=== PATIENT | female | born 1955 | race Caucasian/White ===

== ENCOUNTER 2020-04-22 00:52 | Outpatient (CLI) | payer OTHER, SELFPAY ==
[2020-04-22 18:12] LABS: SARS-CoV-2 RNA PCR Negative
== END 2020-04-22 00:53 | disposition home or self-care (01) ==
LOC: ANHCOVIDDT 00:53
PROVIDERS: PCP Internal Medicine; Visit Provider Internal Medicine Gastroenterology
DX: Z01.812 Encounter for preprocedural laboratory examination (principal); Z20.828 Contact with and (suspected) exposure to other viral communicable diseases
CPT/HCPCS: 87635; C9803; U0003

== ENCOUNTER 2020-04-24 03:01 | Day surgery (SDC) | payer OTHER, SELFPAY ==
[2020-04-18 10:02] VITALS: BMI 35.6
--- NOTE | 2020-04-23 11:51 | WPDANESEPPF ---
Anes - Initial Pre Proc Eval Procedure: Operation Date: 04/24/20 08:00 Proposed Procedures p Screening Colonoscopy - Carl Porter MD Date/Time: 04/23/20 11:51 Surgeon: Carl Porter MD Pre Op Diagnosis: neoplasm screening Patient Data Age: 64 Gender: F Height: 1.68 m Weight: 100 kg Allergies Allergy/AdvReac Type Severity Reaction Status Date / Time nitrofurantoin Allergy Unknown GASTRIC Verified 04/24/20 06:53 DISTRESS Home Medications Medication Instructions Recorded Confirmed Type hydrochlorothiazide 12.5 mg tablet 12.5 mg PO DAILY #90 tablet 12/05/19 04/24/20 Rx semaglutide 3 mg tablet 3 mg PO DAILY 30 Days #30 tablet 04/02/20 04/24/20 Rx amlodipine 5 mg PO HS 04/18/20 04/24/20 History atorvastatin 80 mg PO HS 04/18/20 04/24/20 History fenofibrate 160 mg PO DAILY 04/18/20 04/24/20 History losartan 50 mg PO DAILY 04/18/20 04/24/20 History metformin 1,000 mg PO BID 04/18/20 04/24/20 History omega 5-las-qwg-fish oil [Fish Oil] 1 cap PO DAILY 04/18/20 04/24/20 History Patient hx anesthesia problems: none Family hx anesthesia problems: none [facility] Past Medical History Medical History (Updated 04/23/20 @ 11:51 by Perfecto Gould DO) Benign essential hypertension DM w/o complication type II Dyslipidemia associated with type 2 diabetes mellitus Family History Family History (Updated 02/14/16 @ 23:19 by DOCTOR UNKNOWN) Father Family history of gout Hypertension Family history of diabetes mellitus in first degree relative Mother Family history of diabetes mellitus in first degree relative Family history of malignant neoplasm of cervix Family history of malignant neoplasm of urinary bladder Social History Social History Smoking status: Never smoker Smoking end date: 07/19/77 Alcohol intake: never Substance use: never Substance use type: does not use Spiritual care concerns: No Anes - Eval Final PreProcedure Day of Procedure 04/23/20 11:51 Patient weight: obese Heart: regular rate and rhythm Lungs: clear to auscultation and normal air movement Airway: Mallampati scale class II Neurological: alert and oriented Last oral intake: >/= 8 hours ASA classification: III Emergent: no Anesthetic plan: proceed Anesthesia type and monitoring: general GIVS and standard monitoring Informed Consent: The patient's anesthetic plan and its attendant risks and benefits were discussed with the patient/family/POA. Questions were solicited and answers provided to the satisfaction of the patient/family/POA.
[2020-04-24 06:55] VITALS: BP 144/74; PULSE 76; RESP 16; TEMP 36.4; O2SAT 99; BMI 33.8
[2020-04-24] MEDS: LACTATED RINGERS 1,000 ML 150 ML IV CONT (07:10)
[2020-04-24 07:15] LABS: Glucose Point of Care 131 (65-105)
--- NOTE | 2020-04-24 08:02 | P.CONGI_ITS ---
Assessment and Plan Assessment and plan (1) Encounter for screening colonoscopy: Code(s): Z12.11 - Encounter for screening for malignant neoplasm of colon Status: Acute Assessment and Plan: Patient appears to be at average risk for colon polyps. Plan is for screening colonoscopy has been 13 years since last exam. Further recommendations may be given after endoscopy. GI Consult Note Consult date/time: 04/24/20 08:02 HPI: Annie Yusuf is a 64 year old female seen in evaluation at the request of Dr Everett. Patient presents for neoplasia screening. Her weight appetite bowel movements are normal. She denies abdominal pain. She has had no blood in her stools. Her bowel habits are normal. Her last colonoscopy was about 13 years ago. She presents today for screening colonoscopy. There is no family history of colon or rectal disease. [facility] Past Medical History Medical History (Updated 04/23/20 @ 11:51 by Perfecto Gould, ) Benign essential hypertension DM w/o complication type II Dyslipidemia associated with type 2 diabetes mellitus Family History Family History (Updated 02/14/16 @ 23:19 by DOCTOR UNKNOWN) Father Family history of gout Hypertension Family history of diabetes mellitus in first degree relative Mother Family history of diabetes mellitus in first degree relative Family history of malignant neoplasm of cervix Family history of malignant neoplasm of urinary bladder Social History Social History Smoking status: Never smoker Smoking end date: 07/19/77 Alcohol intake: never Substance use: never Substance use type: does not use Spiritual care concerns: No Meds Home Medications and Allergies Home Medications Medication Instructions Recorded Confirmed Type hydrochlorothiazide 12.5 mg tablet 12.5 mg PO DAILY #90 tablet 12/05/19 04/24/20 Rx semaglutide 3 mg tablet 3 mg PO DAILY 30 Days #30 tablet 04/02/20 04/24/20 Rx amlodipine 5 mg PO HS 04/18/20 04/24/20 History atorvastatin 80 mg PO HS 04/18/20 04/24/20 History fenofibrate 160 mg PO DAILY 04/18/20 04/24/20 History losartan 50 mg PO DAILY 04/18/20 04/24/20 History metformin 1,000 mg PO BID 04/18/20 04/24/20 History omega 2-fot-ljn-fish oil [Fish Oil] 1 cap PO DAILY 04/18/20 04/24/20 History Allergies Allergy/AdvReac Type Severity Reaction Status Date / Time nitrofurantoin Allergy Unknown GASTRIC Verified 04/24/20 06:53 DISTRESS Vital Signs Vital Signs - 24 hr 04/24/20 06:55 Temperature 97.5 F L Pulse Rate 76 Respiratory Rate 16 Blood Pressure 144/74 H Pulse Oximetry 99 Exam Narrative: Exam Narrative: Physical exam reveals patient to be alert. Vital signs stable. HEENT exam unremarkable. Lungs are clear to auscultation and percussion. Heart is without murmur or extra sounds. Abdominal exam bowel sounds are present soft nontender with no hepatosplenomegaly. Digital external rectal exam is normal.
[2020-04-24 08:29] VITALS: BP 141/77; PULSE 74; RESP 20; O2SAT 100
[2020-04-24 08:39] VITALS: BP 165/90; PULSE 65; RESP 24; O2SAT 95
[2020-04-24 08:49] VITALS: BP 144/70; PULSE 66; RESP 16; O2SAT 100
== END 2020-04-24 09:10 | disposition home or self-care (01) ==
PROVIDERS: PCP Internal Medicine; Visit Provider Internal Medicine Gastroenterology
PROC: 0DJD8ZZ Inspection of Lower Intestinal Tract, Via Natural or Artificial Opening Endoscopic (ICD-10-PCS; CPT 45378; principal; 2020-04-24 08:00)
DX: Z12.11 Encounter for screening for malignant neoplasm of colon (principal); I10 Essential (primary) hypertension; E11.9 Type 2 diabetes mellitus without complications; E78.49 Other hyperlipidemia; E66.9 Obesity, unspecified; Z68.33 Body mass index [BMI] 33.0-33.9, adult; D12.4 Benign neoplasm of descending colon; D12.5 Benign neoplasm of sigmoid colon; D12.8 Benign neoplasm of rectum; K57.30 Diverticulosis of large intestine without perforation or abscess without bleeding; K64.8 Other hemorrhoids
CPT/HCPCS: 45385; 88305; J2704; J7120

== ENCOUNTER → 2020-08-09 12:05 | Outpatient (CLI) | payer OTHER, SELFPAY ==
--- NOTE | ~2020-08-09 | MM_ITS ---
EXAMINATION: MM screening [facility] BI w araceli HISTORY: Screening mammogram TECHNIQUE: Craniocaudal and mediolateral oblique 3-D tomosynthesis images were obtained and synthetic 2-D images were generated. CAD analysis was submitted and interpreted. COMPARISON: 07/20/2019, 06/15/2018, 05/21/2017 BREAST PARENCHYMAL COMPOSITION: The breasts are heterogeneously dense, which may obscure small masses . FINDINGS: There is no evidence of suspicious mass, calcification, or architectural distortion to sugg est malignancy in either breast. There has been no suspicious interval change. IMPRESSION: 1. No mammographic evidence of malignancy. 2. Recommend routine screening mammography in one year. BI-RADS Category 1: Negative Reviewed, dictated and finalized at location A. ODITY LEAD
--- NOTE | ~2020-08-09 | DEXA_ITS ---
Bone Density Report Name: Annie Yusuf Age: 65 Sex: Female Ethnicity: White Date of : 1955 Indication: postmenopausal; screening for osteoporosis; hysterectomy; Referring Provider: Mayela Martínez Study: Bone densitometry was performed. Exam Date: August 09, 2020 Accession number: [id number] Bone Density: Region BMD T-score Z-score Classification AP Spine (L1-L4) 1.117 0.6 2.5 Normal Femoral Neck (Left) 0.955 1.0 2.6 Normal Total Hip (Left) 1.318 3.1 4.4 Normal Femoral Neck (Right) 0.876 0.2 1.9 Normal Total Hip (Right) 1.298 2.9 4.3 Normal Total Hip Mean 1.308 3.0 4.4 Normal World Health Organization criteria for BMD impression classify patients as: Normal (T-score at or above -1.0), Osteopenia (T-score between -1.0 and -2.5), or Osteoporosis (T-score at or below -2.5). 10-year Fracture Risk: FRAX not reported because: All T-scores for Spine Total, Hip Total, Femoral Neck at or above -1.0 Previous Exams: Region Exam Age BMD T-score BMD Change BMD Change Date g/cm2 vs Baseline vs Previous AP Spine(L1-L4) 08/09/2020 65 1.117 0.6 0.044 0.082* 09/14/2008 53 1.034 -0.1 -0.038 -0.038 08/12/2005 50 1.072 0.2 Total Hip(Left) 08/09/2020 65 1.318 3.1 -0.072 0.050* 09/14/2008 53 1.269 2.7 -0.122 -0.122 08/12/2005 50 1.390 3.7 Total Hip(Right) 08/09/2020 65 1.298 2.9 0.045 0.082* 09/14/2008 53 1.216 2.2 -0.037 -0.037 08/12/2005 50 1.253 2.5 *Denotes significance at 95% confidence level, LSC for AP Spine = 0.022 g/cm2, LSC for Total Hip = 0.027 g/cm2 Clinical Information Provided by Patient: Has used the following medications: Vitamin D, Calcium Has the following medical conditions: Hysterectomy Patient maximum height was 65.0 Menopause Age: 44 No regular weight bearing exercise Drinks caffeinated beverages Onset of menses at age 10 Number of children 0 Impression: The patient has normal bone mass. No significant bone loss was observed. Discussion: BONE DENSITY IS ABOVE THE MINIMUM DESIRABLE LEVEL AT ALL SKELETAL SITES TESTED. This patient?s bone mineral density is above the minimum desirable level (T-score -1.0 or better) at all sites measured. The patient should follow a healthful lifestyle (good nutrition with adequate calcium and vitamin D, and appropriate weight-bearing exercis
== END ==
PROVIDERS: PCP Internal Medicine; Visit Provider Obstetrics & Gynecology
DX: Z12.31 Encounter for screening mammogram for malignant neoplasm of breast (principal); Z78.0 Asymptomatic menopausal state
CPT/HCPCS: 77063; 77067; 77080

== ENCOUNTER → 2021-10-07 12:37 | Outpatient (CLI) | payer OTHER, SELFPAY ==
--- NOTE | ~2021-10-07 | MM_ITS ---
EXAMINATION: MM screening [facility] BI w araceli HISTORY: Screening mammogram TECHNIQUE: Craniocaudal and mediolateral oblique 3-D tomosynthesis images were obtained and synthetic 2-D images were generated. Bilateral rotated lateral CC views. .CAD analysis was submitted and inter preted. COMPARISON: 08/09/2020, 07/20/2019, 06/15/2018 bilateral screening mammogram examinations BREAST PARENCHYMAL COMPOSITION: The breasts are heterogeneously dense, which may obscure small masses . FINDINGS: There is no evidence of suspicious mass, calcification, or architectural distortion to sugg est malignancy in either breast. There has been no suspicious interval change. IMPRESSION: 1. No mammographic evidence of malignancy. 2. Recommend routine screening mammography in one year. BI-RADS Category 1: Negative Reviewed, dictated and finalized at location A.
== END ==
PROVIDERS: Visit Provider Obstetrics & Gynecology
DX: Z12.31 Encounter for screening mammogram for malignant neoplasm of breast (principal)
CPT/HCPCS: 77063; 77067

== ENCOUNTER 2022-05-22 10:50 | Outpatient (CLI) | payer OTHER, SELFPAY ==
--- NOTE | ~2022-05-22 | XR_ITS ---
EXAMINATION: XR shoulder LT min 2V DATE: 05/22/2022 11:22 INDICATION: Left shoulder pain and limited range of motion post fall TECHNIQUE: AP internally and externally rotated, AP oblique externally rotated and transscapular Y vi ews of the left shoulder were obtained. COMPARISON: None FINDINGS: Normal alignment. No fracture.Mild glenohumeral osteoarthritis with small marginal osteophytes about the humeral head and glenoid. Mild to moderate acromioclavicular osteoarthritis. Small anterior suba cromial spurs. Mild linear discoid atelectasis/scarring at the left posterior sulcus. Visualized port ions of the lungs are otherwise clear. Soft tissues are unremarkable. IMPRESSION: Mild left glenohumeral and mild to moderate acromioclavicular osteoarthritis. Reviewed, dictated and finalized at location B.
== END 2022-05-22 10:51 | disposition home or self-care (01) ==
PROVIDERS: PCP Internal Medicine; Visit Provider Internal Medicine
DX: M19.012 Primary osteoarthritis, left shoulder (principal)
CPT/HCPCS: 73030

== ENCOUNTER 2022-06-23 12:22 | Outpatient (CLI) | payer OTHER, SELFPAY ==
--- NOTE | ~2022-06-23 | XR_ITS ---
XR lumbar spine 2-3V DATE: 06/23/2022 12:47 INDICATION: Fall one month ago. Posterior right back and hip pain TECHNIQUE: AP, lateral, coned lateral lumbosacral views COMPARISON: None FINDINGS: There is prominent degenerative spurring of the lower thoracic spine. Moderately prominent degenerative disc disease at L1-2 and L2-3 and mild degenerative disc disease at L3-4 and L4-5. L5-S1 interspace is well preserved. No fracture or bone destruction. Lumbar pedicles are intact. The sacroiliac joints appear normal. IMPRESSION: Multilevel mild to moderate degenerative disc disease Reviewed, dictated and finalized at location B. 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
== END 2022-06-23 12:23 | disposition home or self-care (01) ==
PROVIDERS: PCP Internal Medicine; Visit Provider Internal Medicine
DX: S39.012A Strain of muscle, fascia and tendon of lower back, initial encounter (principal); X58.XXXA Exposure to other specified factors, initial encounter; M51.36 Other intervertebral disc degeneration, lumbar region
CPT/HCPCS: 72100

== ENCOUNTER 2022-07-15 08:40 | Outpatient (RCR) | payer OTHER, SELFPAY ==
--- NOTE | 2022-07-15 10:11 | PTOPEVAL1 ---
Assessment and note entered by Maria Victoria Servin, PT Evaluation Information Assessment Status Evaluation Diagnosis lumbar disc degeneration Onset May 2022 Subjective Information fell on concrete, fell forward, landed on knees; pain in L shoulder and back; back is better since muscle relaxer, ibuprofen; back is improved in the past week; does not do any regular exercises; have to help who has medical issues--dress , get up out of chair, in/out bed; Reported Pain Level Pain Score Self Report Additional Pain Score Comments pain range of 0-2/10; has improved in the past week, ache in back; increase mopping, vacuuming, on feet over 1 hour; decreased with sitting, ice, meds; sleeping is good; Oswestry self assessment functional score 28% limitation Assessment PT Clinical Summary Annie has the diagnosis of lumbar disc degeneration. Her onset of pain was after falling , and pain has decreased. Pain is increased with heavy home tasks, up on her feet over 1 hour and assisting her . And pain decreased with sitting, rest, ice and meds. Self assessment Oswestry score of 28% limitation. With the evaluation, she has decreased strength of the hips and trunk, with poor posture of her trunk, tightness over B anterior hips/quads with prone knee flexion stretch; Skilled PT services are indicated for modalities to decrease pain and spasms, therapeutic exercises to increase strength and flexibility of trunk and hips, education for home exercises and posture correction. Include education for body mechanics with assisting her with transfers and his care. Plan of Care Interventions Electrical Stimulation,Hot Pack/Cold Pack,Manual Therapy,Neuro Re-education,Patient/Caregiver Education,Therapeutic Activities,Therapeutic Exercise,Self-Care/Home Management,Ultrasound PT Services Indicated Yes Treatment Frequency and 2x/wk for 3 weeks Duration These treatments will address the objective and functional deficits as defined above. The patient will be advanced safely and appropriately in order for the patient to progress towards his/her prior level of function. Additional exercises will be introduced and as well as a comprehensive home exercise program upon discharge, if needed, ?to ensure carryover of functional gains achieved in the clinic. This treatment plan has been reviewed and agreement upon by the patient.
--- NOTE | 2022-07-28 11:18 | PCPTNOTE ---
PHYSICAL THERAPY DISCHARGE 07-28-22 Attending Provider: Sivakumar Irwin MD Patient:Annie Yusuf Date of :1955 Mrs. Yusuf had the PT evaluation on Jul 15 for the diagnosis of low back pain. She then called on June 23 and cancelled all of her appointments, due to a change in her insurance. Discharge PT per pt request.
== END 2022-07-28 14:01 | disposition home or self-care (01) ==
LOC: ANHPT 08:40
PROVIDERS: PCP Internal Medicine; Visit Provider Internal Medicine
DX: M51.36 Other intervertebral disc degeneration, lumbar region (principal); S39.012D Strain of muscle, fascia and tendon of lower back, subsequent encounter
CPT/HCPCS: 97110; 97161; 99199

== ENCOUNTER → 2022-10-08 09:57 | Outpatient (CLI) | payer OTHER, SELFPAY ==
--- NOTE | ~2022-10-08 | DEXA_ITS ---
Bone Density Report Name: JB DAY Age: 67 Sex: Female Ethnicity: White Date of : 1955 Indication: postmenopausal; screening for osteoporosis; hysterectomy; Referring Provider: ALINA, TOSHIA Monson Study: Bone densitometry was performed. Exam Date: October 08, 2022 Accession number: [id number] Bone Density: Region BMD T-score Z-score Classification AP Spine (L1-L4) 1.092 0.4 2.5 Normal Femoral Neck (Left) 0.843 -0.1 1.7 Normal Total Hip (Left) 1.356 3.4 4.9 Normal Femoral Neck (Right) 0.856 0.1 1.8 Normal Total Hip (Right) 1.266 2.7 4.1 Normal Total Hip Mean 1.311 3.1 4.5 Normal World Health Organization criteria for BMD impression classify patients as: Normal (T-score at or above -1.0), Osteopenia (T-score between -1.0 and -2.5), or Osteoporosis (T-score at or below -2.5). 10-year Fracture Risk: FRAX not reported because: All T-scores for Spine Total, Hip Total, Femoral Neck at or above -1.0 Previous Exams: Region Exam Age BMD T-score BMD Change BMD Change Date g/cm2 vs Baseline vs Previous AP Spine(L1-L4) 10/08/2022 67 1.092 0.4 0.020 -0.025* 08/09/2020 65 1.117 0.6 0.044 0.082* 09/14/2008 53 1.034 -0.1 -0.038 -0.038 08/12/2005 50 1.072 0.2 Total Hip(Left) 10/08/2022 67 1.356 3.4 -0.034 0.038* 08/09/2020 65 1.318 3.1 -0.072 0.050* 09/14/2008 53 1.269 2.7 -0.122 -0.122 08/12/2005 50 1.390 3.7 Total Hip(Right) 10/08/2022 67 1.266 2.7 0.013 -0.032* 08/09/2020 65 1.298 2.9 0.045 0.082* 09/14/2008 53 1.216 2.2 -0.037 -0.037 08/12/2005 50 1.253 2.5 *Denotes significance at 95% confidence level, LSC for AP Spine = 0.022 g/cm2, LSC for Total Hip = 0.027 g/cm2 Clinical Information Provided by Patient: Has used the following medications: Vitamin D Has the following medical conditions: Hysterectomy Patient maximum height was 65.0 Menopause Age: 44 No regular weight bearing exercise Drinks caffeinated beverages Onset of menses at age 10 Number of children 0 Impression: The patient has normal bone mass. The BMD for the AP Spine(L1-L4) decreased, changing by -0.025 since the last DXA exam. The BMD for the Total Hip(Right) decreased, changing by -0.032 since the last DXA exam. Discussion: BONE DENSITY IS ABOV
--- NOTE | ~2022-10-08 | MM_ITS ---
EXAMINATION: MM screening [facility] BI w araceli HISTORY: Screening TECHNIQUE: Craniocaudal and mediolateral oblique 3-D tomosynthesis images were obtained and synthetic 2-D images were generated. CAD analysis was submitted and interpreted. COMPARISON: Comparison to multiple prior studies sequentially, with oldest reviewed study dated 04/18. BREAST PARENCHYMAL COMPOSITION: There are scattered areas of fibroglandular density. FINDINGS: There is no evidence of suspicious mass, calcification, or architectural distortion to sugg est malignancy in either breast. There has been no suspicious interval change. IMPRESSION: 1. No mammographic evidence of malignancy. 2. Recommend routine screening mammography in one year. BI-RADS Category 1: Negative Reviewed, dictated and finalized at location A.
== END ==
PROVIDERS: PCP Internal Medicine; Visit Provider Nurse Practitioner
DX: Z12.31 Encounter for screening mammogram for malignant neoplasm of breast (principal); Z13.820 Encounter for screening for osteoporosis; M81.0 Age-related osteoporosis without current pathological fracture
CPT/HCPCS: 77063; 77067; 77080

== ENCOUNTER 2023-12-20 12:08 | Outpatient (CLI) | payer OTHER, SELFPAY ==
--- NOTE | ~2023-12-20 | MM_ITS ---
EXAMINATION: MM screening pk BI w araceli HISTORY: Screening TECHNIQUE: Craniocaudal and mediolateral oblique 3-D tomosynthesis images were obtained and synthetic 2-D images were generated. CAD analysis was submitted and interpreted. COMPARISON: Comparison to multiple prior studies sequentially, with oldest reviewed study dated 09/2016. BREAST PARENCHYMAL COMPOSITION: Dense: The breasts are heterogeneously dense, which may obscure small masses FINDINGS: There is focal asymmetry laterally in the right breast, posterior third on CC view. The lef t breast is stable without evidence for malignancy. IMPRESSION: 1. Focal right breast asymmetry laterally on CC view. 2. Additional mammographic views and possible breast ultrasound are recommended. BI-RADS Category 0: Incomplete: Needs additional imaging evaluation. Reviewed, dictated and finalized at location B. IMPRESSION: 1. Focal right breast asymmetry laterally on CC view. 2. Additional mammographic views and possible breast ultrasound are recommended . BI-RADS Category 0: Incomplete: Needs additional imaging evaluation.
== END 2023-12-20 12:09 ==
LOC: MICIMG 12:10
PROVIDERS: PCP Nurse Practitioner; Visit Provider Nurse Practitioner
DX: Z12.31 Encounter for screening mammogram for malignant neoplasm of breast (principal); R92.8 Other abnormal and inconclusive findings on diagnostic imaging of breast
CPT/HCPCS: 77063; 77067

== ENCOUNTER 2024-01-13 08:10 | Outpatient (CLI) | payer OTHER, SELFPAY ==
--- NOTE | ~2024-01-13 | MM_ITS ---
EXAMINATION: MM diagnostic pk RT w araceli HISTORY: Focal asymmetry right breast TECHNIQUE: Additional 3-D tomosynthesis spot compression images of the right breast were performed an d synthetic 2-D images were generated. CAD analysis was submitted and interpreted. COMPARISON: 12/20/2023, 10/08/2022, 10/07/2021 FINDINGS: Breast parenchyma is heterogeneously dense, which may obscure small masses. The asymmetry at the posterior third of the central right breast effaces with compression. No definit e persistent mass lesion or distortion seen. No suspicious microcalcification. IMPRESSION: No mammographic evidence for malignancy. BI-RADS Category 1: Negative Reviewed, dictated and finalized at location .
== END 2024-01-13 08:11 ==
PROVIDERS: PCP Internal Medicine; Visit Provider Nurse Practitioner
DX: N64.89 Other specified disorders of breast (principal)
CPT/HCPCS: 77061; 77065; G0279

== ENCOUNTER 2025-03-28 13:38 | Outpatient (CLI) | payer OTHER, SELFPAY ==
--- NOTE | ~2025-03-28 | MM_ITS ---
EXAMINATION: MM screening [facility]k BI w araceli HISTORY: Screening TECHNIQUE: Craniocaudal and mediolateral oblique 3-D tomosynthesis images were obtained and synthetic 2-D images were generated. CAD analysis was submitted and interpreted. COMPARISON: Comparison to multiple prior studies sequentially, with oldest reviewed study dated , 07/20/2019 BREAST PARENCHYMAL COMPOSITION: The breasts are heterogeneously dense, which may obscure small masses. FINDINGS: There is no evidence of suspicious mass, calcification, or architectural distortion to suggest malignancy in either breast. IMPRESSION: 1. No mammographic evidence of malignancy. 2. Recommend routine screening mammography in one year. BI-RADS Category 1: Negative Reviewed, dictated and finalized at location B.
== END 2025-03-28 13:39 | disposition home or self-care (01) ==
LOC: MICIMG 13:39
PROVIDERS: PCP Obstetrics & Gynecology; Visit Provider Obstetrics & Gynecology
DX: Z12.31 Encounter for screening mammogram for malignant neoplasm of breast (principal)
CPT/HCPCS: 77063; 77067

== ENCOUNTER 2025-04-24 14:50 | Emergency (ER) | payer OTHER, SELFPAY ==
--- NOTE | ~2025-04-24 | XR_ITS ---
EXAMINATION: XR knee LT min 4V, 04/24/2025 15:34 CDT HISTORY: pain 2 months, no injury, meniscus surgery 2014 COMPARISON: No comparisons available. Findings: No acute fracture or malalignment. Severe severe tricompartmental degenerative changes with small effusion Soft tissues unremarkable. Impression: No acute fracture or malalignment. Reviewed, dictated and finalized at location P. Impression: No acute fracture or malalignment.
[2025-04-24 15:10] VITALS: BP 124/72; PULSE 81; RESP 16; TEMP 36.6; O2SAT 99
--- NOTE | 2025-04-24 16:20 | ED.LOWEXIN ---
HPI - Extremity Injury (Lower) General Chief Complaint: Extremity Injury, Lower Stated Complaint: L KNEE PAIN Time Seen by Provider: 04/24/25 16:00 Source: patient and RN notes reviewed Mode of arrival: ambulatory Limitations: no limitations History of Present Illness HPI Narrative: 69-year-old female Presents Express Care complaining of left knee pain. Patient denies any falls or injuries. Patient is a pains been going on intermittently over the last 2 months. Patient reports sometimes she has severe shooting pains in her knee that almost brings her to the ground. Patient's has been taking Tylenol or ibuprofen with relief. Patient denies any numbness, tingling or any other injuries. Patient has a history of meniscus surgeries her left knee. Related Data Home Medications ?Medication ?Instructions ?Recorded ?Confirmed ?Last Taken ?Type omega 7-wkv-jux-fish oil 1,000 mg 1 cap PO DAILY 04/18/20 12/07/24 04/23/20 History (120 mg-180 mg) capsule (Fish Oil) cholecalciferol (vitamin D3) 50 50 mcg PO DAILY 04/21/22 12/07/24 Unknown History mcg (2,000 unit) capsule Allergies Allergy/AdvReac Type Severity Reaction Status Date / Time nitrofurantoin Allergy Severe GASTRIC Verified 04/24/25 15:00 DISTRESS Review of Systems Review of Systems: CONSTITUTIONAL: Denies fever, chills, or sweats. EYES: Denies visual changes, redness, or discharge. ENT: Denies rhinorrhea, congestion, sore throat, or otalgia. CARDIOVASCULAR: Denies chest pain, palpitations, or edema. RESPIRATORY: Denies cough or dyspnea. GASTROINTESTINAL: Denies abdominal pain, nausea, vomiting, or diarrhea. GENITOURINARY: Denies dysuria or hematuria. SKIN: Denies rash, wound, or itching. MUSCULOSKELETAL: Denies back pain, joint pain, or myalgia. Positive for left knee pain NEUROLOGIC: Denies headache, numbness, or weakness. PSYCHIATRIC: Denies anxiety or depression. All other systems reviewed are negative, except as documented in HPI. [facility] Past Medical History Medical History Benign essential hypertension DM w/o complication type II Dyslipidemia associated with type 2 diabetes mellitus Family History Family History Father Family history of gout Hypertension Family history of diabetes mellitus in first degree relative Mother Family history of diabetes mellitus in first degree relative Family history of malignant neoplasm of cervix Family history of malignant neoplasm of urinary bladder Social History Social History Smoking packs per day: 0.25 Smoking cigarettes per day: 5.0 Years smoked: 1 Smoking pack-years: 0.25 Smoking status: Former smoker Tobacco type: cigarettes Second hand tobacco smoke exposure: No Smoking end date: 07/19/77 Alcohol intake: never Substance use: never Substance use type: does not use Lack of Transportation: No Lack of Food: Never True Current Housing: I Have Housing Concerned About Future Housing: No Difficulty Paying Gas/Electric Bills: No Difficulty Paying for Meds: No Currently Unemployed: No Education: High School Diploma/GED Difficulty w/ Childcare or Family Care: No Spiritual care concerns: No Comments At the time of my signature, I reviewed and agree with the nursing past medical, surgical, social, and family history. There is no relevant family history pertinent to the patient complaint. Exam Narrative: GENERAL: This is a well-nourished, well-developed adult, in no apparent distress. They are non ill-appearing, nontoxic appearing. HEAD: normocephalic, atraumatic. EYES: Sclera clear/white. Vision is grossly intact. Conjunctiva normal. Extraocular movement intact. EARS: External ears normal Hearing grossly intact. NOSE: External nose normal THROAT: Mucous membranes moist NECK: Neck supple CARDIOVASCULAR: Regular rate and rhythm RESPIRATORY: Respiratory rate normal, respiratory effort nonlabored, no respiratory distress NEURO: awake, alert, and oriented to person, place and time. There were no obvious focal neurologic abnormalities. EXTREMITIES: Left knee: No obvious deformity, injury, swelling, bruising, redness. Nontender through full range of motion. No bony tenderness. Capillary refill less than 3 seconds. Normal sensation. Neurovascular status intact distal injury. No valgus or varus laxity. BACK: Nontender without deformity. Course Course Emergency Course: Portions of this record may have been created with voice recognition software Level of Care: Express Care Visit Vital Signs Vital signs: Vital Signs Temperature 97.8 F 04/24/25 15:10 Pulse Rate 81 04/24/25 15:10 Respiratory Rate 16 04/24/25 15:10 Blood Pressure 124/72 04/24/25 15:10 Pulse Oximetry 99 04/24/25 15:10 Temperature 97.8 F 04/24/25 15:10 Pulse Rate 81 04/24/25 15:10 Respiratory Rate 16 04/24/25 15:10 Blood Pressure 124/72 04/24/25 15:10 Pulse Oximetry 99 04/24/25 15:10 Reviewed MDM - Extremity Injury (Lower) MDM Narrative Medical decision making narrative: Left knee x-ray shows severe tricompartmental degenerative changes with small effusion otherwise no fractures or other acute findings. Symptoms likely related to severe arthritis to her left knee. Patient given Zak wrap for compression, patient saw Dr. Priest of in the past for orthopedic procedures, advise a follow-up with him or another orthopedist for further evaluation and management of her symptoms. Discussed physical exam findings. Advised supportive measures and signs/symptoms to go to the ER. Pt is appropriate for outpt treatment and f/u. Differential Diagnosis Differential diagnosis: Likely acute internal derangement of knee and other (Knee sprain, knee arthritis, knee fracture) Imaging Data Radiologist's impression: ITS Impressions Knee X-Ray 04/24/25 15:46 Impression: No acute fracture or malalignment. Critical Care Time Critical Care Time Critical Care Time: No Discharge Plan Discharge Clinical Impression: Arthritis of knee, left Patient Disposition: Home Condition: Stable Instructions: Arthritis (ED) Additional Instructions: The x-ray of your left he is negative for any fracture or acute findings, does show arthritic changes to her knee. Please follow-up with your orthopedist for further evaluation and management of your symptoms. Rest and elevate the leg; bear weight as tolerated Apply ice 15-20 minute intervals several times a day Keep it wrapped with ZAK or use a knee brace You may take ibuprofen 600 mg to 800 mg every 6-8 hours. Do not exceed more than 800 mg of ibuprofen per dose. Do not exceed more than 3200 mg ibuprofen in a day. You may take up to 1000 mg Tylenol every 6-8 hours. Do not exceed 1000 mg per dose, do exceed more than 4000 mg of Tylenol in a day. Patient Language: Anguill[place] Prescriptions: No Action cholecalciferol (vitamin D3) 50 mcg (2,000 unit) capsule 50 mcg PO DAILY omega 8-mkf-fzk-fish oil [Fish Oil] 1,000 mg (120 mg-180 mg) Capsule 1 cap PO DAILY losartan 50 mg tablet See Rx Instructions .ROUTE .COMPLEX Qty: 90 3RF Dose Instruction: TAKE 1 TABLET BY MOUTH ONCE DAILY Rx Instructions: TAKE 1 TABLET BY MOUTH ONCE DAILY metformin 500 mg tablet See Rx Instructions .ROUTE .COMPLEX Qty: 180 3RF Dose Instruction: TAKE 1 TABLET BY MOUTH TWICE A DAY Rx Instructions: TAKE 1 TABLET BY MOUTH TWICE A DAY atorvastatin 80 mg tablet See Rx Instructions .ROUTE .COMPLEX Qty: 90 3RF Dose Instruction: TAKE ONE TABLET BY MOUTH ONCE DAILY Rx Instructions: TAKE ONE TABLET BY MOUTH ONCE DAILY ibuprofen 600 mg tablet 600 mg PO TID PRN (Reason: pain) Qty: 60 1RF Rx Instructions: Take with food pioglitazone 15 mg tablet See Rx Instructions .ROUTE .COMPLEX Qty: 90 1RF Dose Instruction: TAKE 1 TABLET BY MOUTH DAILY Rx Instructions: TAKE 1 TABLET BY MOUTH DAILY Rybelsus 14 mg tablet 14 mg PO DAILY Qty: 120 0RF amlodipine 5 mg tablet See Rx Instructions .ROUTE .COMPLEX Qty: 90 3RF Dose Instruction: TAKE 1 TABLET BY MOUTH AT BEDTIME Rx Instructions: TAKE 1 TABLET BY MOUTH AT BEDTIME hydrochlorothiazide 12.5 mg tablet See Rx Instructions .ROUTE .COMPLEX Qty: 90 3RF Dose Instruction: TAKE 1 TABLET BY MOUTH EVERY DAY Rx Instructions: TAKE 1 TABLET BY MOUTH EVERY DAY Follow-up/Referrals: Edward Felder MD [Physician, Orthopedics] Donell Jama DO [Primary Care Provider, Internal Medicine] Joe Moon MD [Physician, Orthopedics] Time of Disposition: 16:19
== END 2025-04-24 16:21 | disposition home or self-care (01) ==
PROVIDERS: PCP Internal Medicine
DX: M17.12 Unilateral primary osteoarthritis, left knee (principal); I10 Essential (primary) hypertension; E11.9 Type 2 diabetes mellitus without complications; Z87.891 Personal history of nicotine dependence
CPT/HCPCS: 73564; 99213; G0463

== ENCOUNTER 2025-06-08 12:40 | Outpatient (CLI) | payer OTHER, SELFPAY ==
--- NOTE | 2025-06-08 12:44 | ECG_ITS ---
Test Date: 2025-06-08 12:56:49 Measurements Intervals [place] Rate: 79 P: 206 WV: 126 QRS: 223 QRSD: 111 T: 163 QT: 372 QTc: 428 Interpretive Statements ECTOPIC ATRIAL RHYTHM PATTERN CONSISTENT WITH PULMONARY DISEASE INCOMPLETE RIGHT BUNDLE BRANCH BLOCK [90+ ms QRS DURATION, TERMINAL R IN V1/V2, 40+ ms S IN I/aVL/V4/V5/V6] POSSIBLE RIGHT VENTRICULAR HYPERTROPHY [SOME/ALL OF: PROMINENT R IN V1, LATE TRANSITION, RAD, MARGE, SSS] MODERATE ST DEPRESSION [0.05+ mV ST DEPRESSION] No previous ECG available for comparison Electronically Signed On 06-08-2025 19:05:40 UPHOLSTERY RESTORER by Zuri Holly M.D.
--- OUTSIDE RECORDS SUMMARY | 2025-06-08 12:44 | XMS_ITS | Clinical Summary ---
Author Organization [facility] Address [address] [place] [address] Care Team Providers Care Motor Checker Name Role Phone Unavailable Primary Care Provider Unavailabl e Source Comments [facility],non-owned Affiliates and Associated Physician Practices is amultiple site organization consisting of ambulatory clinics and hospital sitesin [place], [place], [place] and [place]. This disclosure is being madepursuant to the Care Everywhere program and may not contain all information available regarding this patient. Last updated 18.[facility] Encounters Date Type Department Care Team Description 04/30/2025 Lab Requisition [facility] - [facility]erm[facility] Lab [address] [place] [address] Ronal Lee MD Basal cell carcinoma of skin of other part of trunk 04/05/2025 Lab [facility] [address] [place] [address] Venkatesh Hall MD Neoplasm of uncertain behavior of skin from Last 3 Months Social History Tobacco Use Types Packs/Day Years Used Date Smoking Tobacco: Never Assessed Comments Unknown Sex and Gender Information Value Date Recorded Sex Assigned at Not on file Legal Sex Female 9:17 AM CDT Gender Identity Not on file Sexual Orientation Not on file Plan of Treatment Health Maintenance Due Date Last Done Comments BONE DENSITY TESTING 1955 COLOGUARD (AGES 45-75) - COL ON CA SCREENING 1955 COLON MONITORING 1953 COLONOSCOPY - COLON CA SCREENING 1953 CT COLONOGRAPHY - COLON CA SCREENING 1953 Colorectal Cancer Screening 1953 FIT - COLON CA SCREENING 1953 FLEX SIG - COLON CA SCREENING 1953 LIPID TESTING 1953 MAMMOGRAM 1953 MEDICARE AWV 12 MONTHS 1953 HEPATITIS C SCREENING 05/22/1971 DTAP/TDAP/TD VACCINES (1 - Tdap) 1972 PNEUMOCOCCAL VACCINE 50+ (1 of 1 - PCV) 2003 ZOSTER VACCINE (1 of 2) 2003 DEPRESSION SCREENING 07/19/2024 COVID-19 VACCINE (1 - 2024-2 6 season) 2025 INFLUENZA VACCINE (#1) 2025 Respiratory Syncytial Virus (RSV) Vaccine Pt: or over 60 yrs (1 - 1-dose 75+ series) 2028 HEPATITIS B VACCINE Aged Out No longe r eligible based on patient's age to complete this topic HIB VACCINE Aged Out No longer eligi ble based on patient's age to complete this topic HPV VACCINE Aged Out No longer eligi ble based on patient's age to complete this topic MENINGOCOCCAL (Group B) VACC INE SHARED DECISION-MAKING Aged Out No longer eligibl e based on patient's age to complete this topic MENINGOCOCCAL GROUPS A/C/Y/W VACCINE Aged Out No longer eligible b ased on patient's age to complete this topic Procedures Procedure Name Priority Date/Time Associated Diagnosis Comments DERMATOPATHOLOGY Routine 04/30/2025 8:00 AM CDT Basal cell carcinoma of skin of other part of trunk DERMATOPATHOLOGY Routine 04/05/2025 12:2 0 PM CDT Neoplasm of uncertain behavior of skin from Last 3 Months Results * DERMATOPATHOLOGY (04/30/2025 8:00 AM CDT) Only the most recent of2 resultswithin the time period is included. Case Report Dermatopathology Report Case: [id number] Authorizing Provider: Ronal Lee MD Collected: 04/30/2025 08:00 AM Ordering Location: [facility] Physician [facility] - Received: 05/02/2025 12:37 PM DermPath Lab Pathologist: Arianne Brewer MD Specimen: Skin, mid back 8:29 AM CDT DERMATOPATHOLOGY LABORATORY Final Diagnosis Specimen A. SKIN, mid back: PROCEDURE SITE CHANGES RESIDUAL BASAL CELL CARCINOMA NOT IDENTIFIED (L90.5) 8:29 AM CDT DERMATOPATHOLOGY LABORATORY at 0829 CDT Clinical History BCC. Check margins 8:29 AM CDT DERMATOPATHOLOGY LABORATORY Gross Description Specimen A: Received is one formalin filled container labeled with the patient's name and designated mid back. The specimen consists of a non-oriented ellipse of skin measuring 90q22c4 mm. The epidermal surface is unremarkable. The margin is inked green. The 12 o'clock and 6 o'clock tips are submitted in cassette 1. The remainder of the ellipse is serially sectioned and submitted in cassette 2-3. Jar 0. 8:29 AM CDT DERMATOPATHOLOGY LABORATORY Microscopic Description Specimen A. SKIN, mid back: Sections show an area of inflamed granulation tissue induced by a recent biopsy, with no evidence of residual basal cell carcinoma. 8:29 AM CDT DERMATOPATHOLOGY LABORATORY Disclaimer An external and internal positive and negative controls are appropriate for the histochemical, immunohistochemical and immunofluorescence stain(s) in this case (if any), except where stated explicitly. The performance characteristics of the stain(s) cited in this report were developed and its performance characteristic determined by the Dermatopathology Laboratory at [facility], directed by Dr. Lobo Carranza. These tests need not be, and therefore are not, approved by the [place] Food and Drug Administration. The tests are used for clinical purposes. Billing Codes Specimen Charges Stain Charges 04160 1 8:29 AM CDT DERMATOPATHOLOGY LABORATORY Embedded Images 8:29 AM CDT DERMATOPATHOLOGY LABORATORY Pathology/Cytolo gy TISSUE SPECIMEN FROM SKIN / Unknown 04/30/2025 8:00 AM CDT 05/02/2025 12:37 PM CDT Ronal Lee MD LAB - PATHOLOGY/CYTOLOGY ORDERAB LES Final Result DERMATOPATHOLOGY LABORATORY [facility] - Department of Dermatology [address] [place] [address], [facility] [phone] from Last 3 Months Insurance [employer] [facility] Care Address: [address] [place] [address]
--- OUTSIDE RECORDS SUMMARY | 2025-06-08 12:44 | XMS_ITS | Encounter Summary ---
Author Organization [facility] Address [address] [place] [address] Care Team Providers Care Candle Maker Name Role Phone Unavailable Primary Care Provider Unavailabl e Encounter Details Date Type Department Care Team (Late st Contact Info) Description 04/05/2025 Lab Requisition [facility] - DermPath Lab [address] [place] [id number] Venkatesh Hall MD [facility] DERMATOLOGY [address] [place] [phone] Neoplasm of uncertain behavior of skin Social History Tobacco Use Types Packs/Day Years Used Date Smoking Tobacco: Never Assessed Comments Unknown Sex and Gender Information Value Date Recorded Sex Assigned at Not on file Legal Sex Female 9:17 AM CDT Gender Identity Not on file Sexual Orientation Not on file documented as of this encounter Plan of Treatment Not on file documented as of this encounter Procedures Procedure Name Priority Date/Time Associated Diagnosis Comments DERMATOPATHOLOGY Routine 04/05/2025 12:2 0 PM CDT Neoplasm of uncertain behavior of skin documented in this encounter Results * DERMATOPATHOLOGY (04/05/2025 12:20 PM CDT) Case Report Dermatopathology Report Case: [id number] Authorizing Provider: Venkatesh Hall MD Collected: 04/05/2025 12:20 PM Ordering Location: [facility] Physician [facility] - Received: 04/06/2025 02:08 PM DermPath Lab Pathologist: Damien Carranza MD Specimen: Skin, mid back 5 6:11 PM CDT DERMATOPATHOLOGY LABORATORY Final Diagnosis Specimen A. SKIN, mid back: BASAL CELL CARCINOMA, NODULAR TYPE (C44.519) 5 6:11 PM CDT DERMATOPATHOLOGY LABORATORY at 1811 CDT Clinical History BCC 5 6:11 PM CDT DERMATOPATHOLOGY LABORATORY Gross Description Specimen A: Received is one formalin filled container labeled with the patient's name and designated mid back. The specimen consists of a shave biopsy measuring 10x9x2 mm. Jar 0. 5 6:11 PM CDT DERMATOPATHOLOGY LABORATORY Microscopic Description Specimen A. SKIN, mid back: Within the dermis there are aggregates of basaloid cells with a high nuclear to cytoplasmic ratio and peripheral palisading. 5 6:11 PM CDT DERMATOPATHOLOGY LABORATORY Disclaimer An external and internal positive and negative controls are appropriate for the histochemical, immunohistochemical and immunofluorescence stain(s) in this case (if any), except where stated explicitly. The performance characteristics of the stain(s) cited in this report were developed and its performance characteristic determined by the Dermatopathology Laboratory at [facility], directed by Dr. Lobo Carranza. These tests need not be, and therefore are not, approved by the [place] Food and Drug Administration. The tests are used for clinical purposes. Billing Codes Specimen Charges Stain Charges 84066 1 5 6:11 PM CDT DERMATOPATHOLOGY LABORATORY Embedded Images 5 6:11 PM CDT DERMATOPATHOLOGY LABORATORY Pathology/Cytolo gy TISSUE SPECIMEN FROM SKIN / Unknown 04/05/2025 12:20 PM CDT 04/06/2025 2:08 PM CDT Venkatesh Hall MD LAB - PATHOLOGY/CYTOLOGY ALESSIA GARCIA Final Result DERMATOPATHOLOGY LABORATORY [facility] - Department of Dermatology [address] [phone] documented in this encounter Visit Diagnoses Diagnosis Neoplasm of uncertain behavior of skin documented in this encounter
--- OUTSIDE RECORDS SUMMARY | 2025-06-08 12:44 | XMS_ITS | Data Portability ---
Author Organization [facility] Address [address] [place] [address] Care Team Providers Care Professor Of Management Name Role Phone JAVIER BROWN Primary Care Provider Assessment Encounter Date Assessment Date Assessment LastModified by Organization Details LastModified Time 06/08/2022 06/08/2022 Annual gynecological exam performed. Patient will come back in a year unless there are new symptoms. [email or web address] Not available 06/08/2022 11:25:20 06/21/2023 06/21/2023 Annual gynecological exam performed. Patient will come back in a year unless there are new symptoms. Not available 06/21/2023 12:35:15 06/23/2024 06/23/2024 Annual gynecological exam performed. Patient will come back in a year unless there are new symptoms. [email or web address] Not available 06/23/2024 11:06:39 Plan of Treatment Reminders Order Date Submit Date Provider Last Modified By Organization Details Last Modified Time Details Appointments None recorded . Lab CBC w/ auto diff 2022 023 [facility] (Lab), [address], [place], [address], 3 06:44:22 thyroglo bulin Ab, serum 2022 023 [facility] (Lab), [address], [place], [address], 3 06:44:24 free T3, quantita tive, dialysis serum or plasma 2022 023 [facility] (Lab), [address], [place], [address], 3 06:44:23 T4, free, serum 2022 023 [facility] (Lab), [address], [place], [address], 3 06:44:23 TSH, serum or plasma 2022 023 [facility] (Lab), [address], [place], [address], 3 06:44:23 Referral None recorded . Procedures None recorded . Surgeries None recorded . Imaging MAMMO, screenin g, digital, bilatera l 2022 023 [facility], [address], [place], [address], 4 14:41:46 DEXA, axial skeleton + vertebra l fracture assessme nt 2021 022 [facility], [address], [address], [place], [address], 2 11:22:22 MAMMO, screenin g, digital, bilatera l 2021 022 [facility], [address], [place], [address], 2 11:22:22 Medication Orders nystatin 100,000 unit/gra m topical cream 2023 024 [id number] [facility], [address], [place], [address], 4 12:51:50 estradio l 0.01% (0.1 mg/gram) vaginal cream 2023 024 [facility] [address] [facility], [address], [place], [address], 4 12:52:13 estradio l 0.01% (0.1 mg/gram) vaginal cream 2023 024 [facility] [address] [facility], [address], [place], [address], 4 14:24:19 estradio l 0.01% (0.1 mg/gram) vaginal cream 2022 023 [facility] [address] [facility], [address] [facility], [place], [address], 3 13:44:14 Patient TargetsNo targets recorded. Patient InstructionsNo instructions recorded. Reason for Referral None Reported. Results Created Date Observation Date Name Description Value Unit Range Abnormal Flag Note LastModifiedBy Organization Detail LastModifiedTime 03/03/2003/03/2023 CBC W/DIF F WBC 8.8 10'3/ uL 3.6-10 .2 Not Available [facility] (Lab) [address] [place], [address], 03/04/2023 06:44:22 03/03/2003/03/2023 CBC W/DIF F RBC 4.58 10'6/ uL (based on docume nted legal sex) 4.10-5 .30 Not Available [facility] (Lab) [address] [place], [address], 03/04/2023 06:44:22 03/03/2003/03/2023 CBC W/DIF F HGB 14.0 g/dL (based on docume nted legal sex) 11.9-1 5.8 Not Available [facility] (Lab) [address] [place], [address], 03/04/2023 06:44:22 03/03/20 23 03/03/2023 CBC W/DIF F HCT 44.1 % (based on docume nted legal sex) 37.4-4 8.3 Not Available [facility] (Lab) [address], [place], [address], 03/04/2023 06:44:22 03/03/20 23 03/03/2023 CBC W/DIF F MCV 96.3 fL 82.0-9 9.0 Not Available [facility] (Lab) [address], [place], [address], 03/04/2023 06:44:22 03/03/20 23 03/03/2023 CBC W/DIF F MCH 30.6 pg 27.0-3 3.0 Not Available [facility] (Lab) [address], [place], [address], 03/04/2023 06:44:22 03/03/20 23 03/03/2023 CBC W/DIF F MCHC 31.7 g/dL 32.0-3 6.0 low Not Available [facility] (Lab) [address], [place], [address], 03/04/2023 06:44:22 03/03/20 23 03/03/2023 CBC W/DIF F RDW 13.2 % 11.0-1 5.0 Not Available [facility] (Lab) [address], [place], [address], 03/04/2023 06:44:22 03/03/20 23 03/03/2023 CBC W/DIF F plt 245 10'3/ uL 150-45 0 Not Available [facility] (Lab) [address], [place], [address], 03/04/2023 06:44:22 03/03/20 23 03/03/2023 CBC W/DIF F MPV 8.9 fL 9.8-12 .7 low Not Available [facility] (Lab) [address], [place], [address], 03/04/2023 06:44:22 03/03/20 23 03/03/2023 CBC W/DIF F NRBC's 0.0 % 0 Not Available [facility] (Lab) [address], [place], [address], 03/04/2023 06:44:22 03/03/20 23 03/03/2023 CBC W/DIF F absolute NRBCs 0.0 10'3/ uL 0 Not Available [facility] (Lab) [address], [place], [address], 03/04/2023 06:44:22 03/03/20 23 03/03/2023 CBC W/DIF F neutrophils 70.3 % 37.0-7 2.0 Not Available [facility] (Lab) [address], [place], [address], 03/04/2023 06:44:22 03/03/20 23 03/03/2023 CBC W/DIF F lymphocytes 20.7 % 16.0-4 8.0 Not Available [facility] (Lab) [address], [place], [address], 03/04/2023 06:44:22 03/03/20 23 03/03/2023 CBC W/DIF F monocytes 5.0 % 4.0-14 .0 Not Available [facility] (Lab) [address], [place], [address], 03/04/2023 06:44:22 03/03/20 23 03/03/2023 CBC W/DIF F eosinophils 3.0 % 0.0-9. 0 Not Available [facility] (Lab) [address], [place], [address], 03/04/2023 06:44:22 03/03/20 23 03/03/2023 CBC W/DIF F basophils 0.8 % 0.0-2. 0 Not Available [facility] (Lab) [address], [place], [address], 03/04/2023 06:44:22 03/03/20 23 03/03/2023 CBC W/DIF F immature granulocytes 0.2 % no define d refere nce range Not Available [facility] (Lab) [address], [place], [address], 03/04/2023 06:44:22 03/03/20 23 03/03/2023 CBC W/DIF F absolute neutrophils 6.2 10'3/ uL 1.1-6. 0 high Not Available [facility] (Lab) [address], [place], [address], 03/04/2023 06:44:22 03/03/20 23 03/03/2023 CBC W/DIF F absolute lymphocytes 1.8 10'3/ uL 0.7-3. 4 Not Available [facility] (Lab) [address], [place], [address], 03/04/2023 06:44:22 03/03/20 23 03/03/2023 CBC W/DIF F absolute monocytes 0.4 10'3/ uL 0.3-1. 0 Not Available [facility] (Lab) [address], [place], [address], 03/04/2023 06:44:22 03/03/20 23 03/03/2023 CBC W/DIF F absolute eosinophils 0.3 10'3/ uL 0.0-0. 6 Not Available [facility] (Lab) [address], [place], [address], 03/04/2023 06:44:22 03/03/20 23 03/03/2023 CBC W/DIF F absolute basophils 0.1 10'3/ uL 0.0-0. 1 Not Available [facility] (Lab) [address], [place], [address], 03/04/2023 06:44:22 03/03/20 23 03/03/2023 CBC W/DIF F absolute immature granulocytes 0.0 10'3/ uL 0.00-0 .10 2022 4:16 AM: P indic ates parti al resul ts on a panel have been relea sed. Addit ional resul ts will follo w. 2022 4:16 AM: This resul t has been final verif ied. No addit ional or ramirez ed resul ts are expec thomas. Not Available [facility] (Lab) [address], [place], [address], 03/04/2023 06:44:22 03/03/20 23 03/03/2023 TSH TSH 1.24 uIU/m L 0.30-5 .33 Not Available [facility] (Lab) [address], [place], [address], 03/04/2023 06:44:23 03/03/20 23 03/03/2023 FREE T3 T3, free 3.38 pg/mL 2.50-3 .90 Not Available [facility] (Lab) [address], [place], [address], 03/04/2023 06:44:23 03/03/20 23 03/03/2023 T4 FREE T4, free 0.97 NG/dL 0.60-1 .40 Not Available [facility] (Lab) [address], [place], [address], 03/04/2023 06:44:23 03/03/20 23 03/03/2023 THYRO ID ANTIB NATALIA PANEL thyroglobuli n antibody <1.0 IU/mL <=3.9 Not Available [facility] (Lab) [address], [place], [address], 03/04/2023 06:44:24 03/03/20 23 03/03/2023 THYRO ID ANTIB NATALIA PANEL thyroperoxid ase antibodies 0.5 IU/mL 0.0-9. 0 This assay was perfo rmed using Beckm an Coult er reage nts and test kits. Value s obtai sobeida with other assay metho ds or kits canno t be used inter ramirez eably . Not Available [facility] (Lab) [address], [place], [address], 03/04/2023 06:44:24 10/09/19 23 10/08/2022 MAMMO , scree yennifer, digit al, bilat eral No observ ation record ed. [email or web address] [facility] [address], [place], [address], 10/08/2022 15:50:56 10/29/19 23 DEXA, axial skele ton + verte bral fract ure asses sment No observ ation record ed. [email or web address] [facility] [address], [place], [address], 10/29/2022 15:05:39 12/20/19 24 12/20/2023 MAMMO , scree yennifer, digit al, bilat eral No observ ation record ed. [email or web address] [facility] [address], [place], [address], 12/22/2023 14:59:46 03/28/20 25 03/28/2025 imagi ng/di agnos tic resul t No observ ation record ed. [email or web address] [facility] [address], [place], [address], 03/28/2025 19:01:01 Result Notes None recorded. Problems Name Problem SNOMED Code Status Onset Date Resolution Date Notes Provider Name and Address Organization Details Recorded Time History of hysterectomy 255645919 Active 1998 Mayela Martínez MD [address], [place], [address], [place] [facility] 0 14:35:43 Type 2 diabetes mellitus 06066816 Active 2019 Mayela Martínez MD [address], [place], [address], [facility] 0 14:35:50 Essential hypertension 99152816 Active 2019 Mayela Martínez MD [address], [place], [address], [facility] 0 14:35:58 Problem Notes None recorded. Procedures Surgical History Date Name Laterality Status Provider Name and Address Organization Details Recorded Time 12/20/19 24 Date of Last Mammogram completed Cathi Ross [facility] 06/23/2024 11:07:48 06/21/20 23 Date of Last Pap Smear completed Eloisa Waddell [facility] 06/21/2023 12:36:40 03/19/20 20 completed Mayela Martínez MD [address], [place], [address], [facility] 06/03/2020 14:50:27 07/19/19 16 complete repair of rotator cuff completed [facility] 06/03/2020 09:51:07 07/19/19 11 operative procedure on knee completed [facility] 06/03/2020 09:50:40 07/19/18 99 total abdominal hysterectomy completed [facility] 06/03/2020 09:50:30 07/19/18 83 Dilation and Curettage completed [facility] 06/03/2020 09:50:00 Imaging Results None recorded. Procedure Notes None recorded. Medical Equipment None Reported. Allergies Allergen ID Allergen Name Allergen Category Reaction Reaction Severity Criticality Documentation Date Start Date Code Code System Note Provider Name and Address Organization Details Recorded Time 4654 nitrofura ntoin medicatio n Not available Not available Not available 06/03/2020 7454 RxNorm Carmenzavalerio May [facility] 0 09:55:49 Medications Name Sig Start Date Stop Date Status Note LastModified by Organization Details LastModified Time losartan 50 mg tablet TAKE ONE TABLET BY MOUTH ONCE DAILY active Not Available Not Available No t Available metformin 500 mg tablet TAKE 1 TABLET BY MOUTH TWICE A DAY active Not Available Not Available No t Available atorvasta tin 80 mg tablet TAKE 1 TABLET BY MOUTH EVERY DAY active Not Available Not Available No t Available atorvasta tin 10 mg tablet take 1 tablet by oral route every day 06/08 completed Prescrib ed Elsewher e: Yes Loca tion: [facility] odify By: [email or web address] Encounte r DateTime : 07/24/19 17 02:00:00 PM Not Available Not Available Not Available azithromy rosalie 250 mg tablet 06/03 completed Not Available Not Available Not Available Terazol 3 80 mg vaginal supposito ry insert 1 supposit ory by vaginal route every day at bedtime 06/08 completed Prescrib ed Elsewher e: No Locat ion: [facility] odify By: [email or web address] Encounte r DateTime : 01/12/20 17 04:45:00 PM Not Available Not Available Not Available cephalexi n 250 mg capsule TAKE 1 CAPSULE BY MOUTH EVERY 12 HOURS 03/03 completed Not Available Not Available Not Available hydrocodo ne 5 mg-acetam inophen 325 mg tablet TAKE 1 TABLET BY MOUTH EVERY 6 - 8 HOURS NEEDED FOR PAIN 06/21 completed Not Available Not Available Not Available Pyridium 100 mg tablet Take 1 tablet 3 times a day by oral route as needed for 3 days. 06/08 completed Not Available Not Available Not Available clobetaso l 0.05 % topical cream apply by topical route 2 times every day a thin layer to the affected area(s) 06/19 completed Prescrib ed Elsewher e: No Locat ion: [facility] odify By: brie franco DateTime : 01/14/20 13 11:30:22 AM Not Available Not Available Not Available clotrimaz ole 1 % vaginal cream apply thin layer twice daily 2024 active Not Available Not Available Not Avai lable amlodipin e 2.5 mg tablet take 1 tablet by oral route every day 06/08 completed Prescrib ed Elsewher e: Yes Loca tion: [facility] odify By: clarita candelariauntoliver DateTime : 05/30/20 19 01:00:00 PM Not Available Not Available Not Available amlodipin e 5 mg tablet TAKE 1 TABLET BY MOUTH AT BEDTIME active Not Available Not Available No t Available sulfameth oxazole 800 mg-trimet hoprim 160 mg tablet TAKE 1 TABLET BY MOUTH TWICE A DAY 06/08 completed Not Available Not Available Not Available tramadol 50 mg tablet take 1 tablet by oral route every 6 hours as needed 06/19 completed Prescrib ed Elsewher e: Yes Loca tion: [facility] odify By: brie franco DateTime : 01/21/20 12 11:30:00 AM Not Available Not Available Not Available simvastat in 40 mg tablet take 1 tablet by oral route every day in the evening 07/24 completed Prescrib ed Elsewher e: Yes Loca tion: [facility] odify By: peggy mendoza DateTime : 01/21/20 12 11:30:00 AM Not Available Not Available Not Available glimepiri de 2 mg tablet 06/03 completed Not Available Not Available Not Available glimepiri de 1 mg tablet take 1 tablet by oral route every day 06/08 completed Prescrib ed Elsewher e: Yes Loca tion: [facility] odify By: clarita rivera DateTime : 05/30/20 19 01:00:00 PM Not Available Not Available Not Available Macrobid 100 mg capsule take 1 capsule (100MG) by oral route every 12 hours with food 06/19 completed Prescrib ed Elsewher e: No Locat ion: [facility] odify By: brie franco DateTime : 12/17/19 13 10:45:40 AM Not Available Not Available Not Available amitripty line 25 mg tablet take 1 tablet by oral route every day at bedtime 06/08 completed Prescrib ed Elsewher e: No Locat ion: [facility] odify By: [email or web address] tz Encou nter DateTime : 05/25/20 18 11:30:00 AM Not Available Not Available Not Available erythromy rosalie 5 mg/gram (0.5 %) eye ointment APPLY A SMALL AMOUNT TO EYELID THREE TIMES DAILY FOR 10 DAYS AFTER SURGERY. 06/23 completed Not Available Not Available Not Available metformin 1,000 mg tablet TAKE 1 TABLET BY MOUTH TWICE A DAY 06/08 completed Not Available Not Available Not Available neomycin- polymyxin -dexameth 3.5 mg/mL-10, 000 unit/mL-0 .1% eye drops 06/03 completed Not Available Not Available Not Available nystatin 100,000 unit/gram topical cream APPLY TO THE AFFECTED AREA(S) BY TOPICAL ROUTE 2 TIMES PER DAY FOR 5 DAYS active Not Available Not Available No t Available Neurontin 100 mg capsule take 1 Capsule (100MG) by oral route 2 times every day 07/24 completed Prescrib ed Elsewher e: No Locat ion: [facility] odify By: peggy Wagner r DateTime : 09/05/19 14 11:31:04 AM Not Available Not Available Not Available losartan 25 mg tablet take 1 tablet by oral route every day 06/08 completed Prescrib ed Elsewher e: Yes Loca tion: [facility] odify By: peggy Colete r DateTime : 07/24/19 17 02:00:00 PM Not Available Not Available Not Available niacin 100 mg tablet take 1 tablet by oral route 2 times every day with meals 07/20 completed Prescrib ed Elsewher e: Yes Loca tion: [facility] odify By: mayank Cole ter DateTime : 01/21/20 12 11:30:00 AM Not Available Not Available Not Available cranberry fruit 400 mg capsule 06/19 completed Prescrib ed Elsewher e: Yes [facility] By: brie franco DateTime : 01/21/20 12 11:30:00 AM Not Available Not Available Not Available Jena-B-1 2 5.5 mg-12.5 mcg/5 mL oral liquid 07/24 completed Prescrib ed Elsewher e: Yes Loca tion: [facility] odify By: peggy Colete r DateTime : 01/21/20 12 11:30:00 AM Not Available Not Available Not Available lisinopri l 5 mg tablet take 1 tablet by oral route every day 07/24 completed Prescrib ed Elsewher e: Yes Loca tion: [facility] odify By: peggy Colete r DateTime : 01/21/20 12 11:30:00 AM Not Available Not Available Not Available mirtazapi ne 15 mg tablet TAKE 1 TABLET BY MOUTH EVERY NIGHT AT BEDTIME 06/08 completed Not Available Not Available Not Available ibuprofen 600 mg tablet TAKE 1 TABLET BY MOUTH 3 TIMES A DAY NEEDED FOR PAIN active Not Available Not Available No t Available estradiol 0.01% (0.1 mg/gram) vaginal cream insert 1g vaginall y 2-3 times per week active Not Available Not Available No t Available neomycin 3.5 mg/g-poly myxin B 10,000 unit/g-de xameth 0.1 % eye oint 06/03 completed Not Available Not Available Not Available cyclobenz aprine 5 mg tablet TAKE 1 TABLET BY MOUTH TWICE A DAY NEEDED FOR MUSCLE SPASM 06/23 completed Not Available Not Available Not Available Fish Oil 120 mg-180 mg capsule active Prescrib ed Elsewher e: Yes Loca tion: [facility] odify By: [email or web address] trick En counter DateTime : 01/21/20 12 11:30:00 AM Not Available Not Available Not Available Premarin 0.625 mg/gram vaginal cream insert (1G) by vaginal route every other night for 1 month then once or twice weekly 06/08 completed Prescrib ed Elsewher e: No Locat ion: [facility] odify By: evelyn Lucas nter DateTime : 05/25/20 18 11:30:00 AM Not Available Not Available Not Available metformin 500 mg/5 mL oral solution take 10 millilit er by oral route 2 times every day with meals 06/08 completed Prescrib ed Elsewher e: Yes Loca tion: [facility] odify By: anarytessy Vaughn ncounter DateTime : 05/30/20 19 01:00:00 PM Not Available Not Available Not Available Cinnamon 500 mg capsule 01/20 completed Prescrib ed Elsewher e: Yes Loca tion: [facility] odify By: tgingwendi klaus Douglas franco DateTime : 01/21/20 12 11:30:00 AM Not Available Not Available Not Available fenofibra te 160 mg tablet TAKE 1 TABLET BY MOUTH DAILY 06/08 completed Not Available Not Available Not Available Fish Oil 06/08 completed Not Available Not Available Not Available cephalexi n 750 mg capsule TAKE 1 CAPSULE BY MOUTH TWICE A DAY FOR 5 DAYS 06/08 completed Not Available Not Available Not Available Ultram ER 200 mg tablet,ex tended release take 1 tablet by oral route every day 07/24 completed Prescrib ed Elsewher e: Yes Loca tion: [facility] odify By: peggy Encounte r DateTime : 01/21/20 12 11:30:00 AM Not Available Not Available Not Available Januvia 25 mg tablet 06/08 completed Prescrib ed Elsewher e: Yes Loca tion: [facility] odify By: peggy Encounte r DateTime : 07/24/19 17 02:00:00 PM Not Available Not Available Not Available hydrochlo rothiazid e 12.5 mg tablet TAKE 1 TABLET BY MOUTH DAILY active Not Available Not Available No t Available cholecalc iferol (vitamin D3) 1,250 mcg (50,000 unit) capsule TAKE 1 CAPSULE BY MOUTH WEEKLY 06/21 completed Not Available Not Available Not Available Soma 250 mg tablet take 1 tablet (250MG) by oral route 3 times every day before meals and at bedtime 07/24 completed Prescrib ed Elsewher e: No Locat ion: [facility] odify By: peggy Encounte r DateTime : 09/14/19 14 05:15:00 PM Not Available Not Available Not Available Fenoglide 40 mg tablet take 2 tablet by oral route every day 06/08 completed Prescrib ed Elsewher e: Yes Loca tion: [facility] odify By: [email or web address] trick En counter DateTime : 01/21/20 12 11:30:00 AM Not Available Not Available Not Available Suprep Bowel Prep Kit 17.5 gram-3.13 gram-1.6 gram oral solution USE DIRECTED 06/03 completed Not Available Not Available Not Available Vicodin 5 mg-300 mg tablet take 1 tablet by oral route every 4 - 6 hours as needed for pain 07/20 completed Prescrib ed Elsewher e: No Locat ion: [facility] odify By: mayank franco DateTime : 09/14/19 14 05:15:00 PM Not Available Not Available Not Available Synjardy XR 10 mg-1,000 mg tablet, extended release take 2 tablet by oral route every day in the morning with a meal 06/08 completed Prescrib ed Elsewher e: Yes Loca tion: [facility] odify By: clarita rivera DateTime : 05/25/20 18 11:30:00 AM Not Available Not Available Not Available Rybelsus 14 mg tablet TAKE 1 TABLET BY MOUTH DAILY active Not Available Not Available No t Available Rybelsus 7 mg tablet TAKE 1 TABLET BY MOUTH EVERY DAY 06/08 completed Not Available Not Available Not Available Rybelsus 3 mg tablet TAKE 1 TABLET BY MOUTH EVERY DAY FOR 30 DAYS 06/08 completed Not Available Not Available Not Available Fluad Quad (65yr up)(PF) 60 mcg (15 mcg x 4)/0.5mL IM syringe PHARMACY ADMINIST EREGloria 06/03 completed Not Available Not Available Not Available COVID-19 At-Home Test kit REFER TO MANUFACT URER INSTRUCT IONS INCLUDED IN PACKAGIN G 03/03 completed Not Available Not Available Not Available Vitals Date Recorded Body height Body mass index (BMI) Body weight Systolic And Diastolic Provider Name and Address Organization Details Last Updated DateTime 08/10/2023 167.64 cm 32.3 kg/m2 69904.47 g 126/81 mm[Hg] Kiara Zepeda [facility] 08/10/2023 14:10:12 Date Recorded Body height Body mass index (BMI) Body weight Systolic And Diastolic Provider Name and Address Organization Details Last Updated DateTime 03/03/2023 167.64 cm 32.9 kg/m2 84875.84 g 123/81 mm[Hg] [facility] 03/03/2023 11:47:34 Date Recorded Body height Body mass index (BMI) Body weight Systolic And Diastolic Provider Name and Address Organization Details Last Updated DateTime 06/08/2022 167.64 cm 32.9 kg/m2 64322.84 g 140/76 mm[Hg] Tierney Husseinjoan [facility] 06/08/2022 11:53:07 Date Recorded Body height Body mass index (BMI) Body weight Systolic And Diastolic Systolic And Diastolic Provider Name and Address Organization Details Last Updated DateTime 06/21/2023 167.64 cm 32.1 kg/m2 67970.88 g 141/84 mm[Hg] 140/88 mm[Hg] Eloisa Waddell [facility] 13:12:05 Date Recorded Body height Body mass index (BMI) Body weight Systolic And Diastolic Provider Name and Address Organization Details Last Updated DateTime 06/23/2024 167.64 cm 32.2 kg/m2 61382.32 g 139/77 mm[Hg] Cathi Ross [facility] 06/23/2024 12:35:57 Social History Question Answer Notes LastModified by [employer] Details LastModified Time Tobacco Smoking Status Never Smoker [facility] 06/03/2020 14:33:36 Are You Blind Or Do You Have Difficulty Seeing? No Information not available 06/08/2022 Are You Deaf Or Do You Have Serious Difficulty Hearing? No Information not available 06/08/2022 What Type Of Diet Are You Following? REGULAR Information not available 06/08/2022 Do You Have Difficulty Walking Or Climbing Stairs? No Information not available 06/08/2022 Sex: Unknown Functional Status Question Answer Note LastModified by [employer] Details LastModified Time What is your level of alcohol consumption? Occasional Information not available 06/08/2022 Are you able to walk independently without assistance or assistive devices? YESWOREST Information not available 06/08/2022 Are you able to care for yourself independently? Yes Information not available 06/08/2022 Do you have difficulty dressing, bathing, grooming, or toileting? No Information not available 06/08/2022 What is your exercise level? None Information not available 06/08/2022 Mental Status None recorded. Family History Relationship Description Onset Age of this Age Resolved Age Notes LastModified by Organization Details LastModified Time Mother Hypertensive disorder [email or web address] Not available 2019 09:48:01 Mother Carcinoma in situ of uterus smcaley Not available 2019 09:48:25 Mother Carcinoma of uterine cervix, invasive smcaley Not available 2019 09:48:42 Mother Diabetes mellitus [email or web address] Not available 2019 09:49:15 Mother Endometrial carcinoma [email or web address] Not available 02/16 11:48:54 Father Hypertensive disorder smcaley Not available 2019 09:48:01 Maternal Grandfather Diabetes mellitus smcaley Not available 2019 09:49:15 Sister Endometrial carcinoma smcaley Not available 2019 09:49:30 Notes:Father: Hypertension M aternal grandfather: Diabetes mellitus Mother: Diabetes mellitus, Cervical cancer, Ovarian cancer, DMNID, Uterine CA & Cervix 35y/o, rads, Hypertension Sister: Cancer, endrometrium Medical History Condition Response Allergies (Food, seasonal, environmental ) N Other N Breast Cancer N Drug/Latex Allergies/Reactions N Blood Transfusion N Dermatologic Disorders N Lung Disease N Defects or Inherited Disease N Breast Problem N Gestational Diabetes N Hematologic disorders N Anesthesia Complications N History of STI N Deep Vein Thrombosis N Polycystic ovary syndrome N Anxiety Disorder N Autoimmune disease N Arthritis N Infertility N Polyps N Acid Reflux (GERD) N History of abnormal pap N Cancer N Stroke N Varicosities N Neurologic/Epilepsy N Endometriosis N High Cholesterol N Headaches N Fibromyalgia N Kidney Disease N Heart Problems N Kidney or Bladder Problems N Thyroid Problems N GI Problems N Eating Disorder N Anemia N Art (IVF or FET) N Psychiatric Illness N Ovarian Cancer N Diabetes Y Pulmonary (TB, Asthma) N Hepatitis/Liver Disease N No Past Medical History N Eczema N Urinary Tract Infection N Abuse/Domestic Violence N Asthma N Trauma/Violence N Depression/ depression N Heart Disease N Pre-Eclampsia N Hypertension Y Osteoporosis N Thrombophilias N Gynecological History Statement/Question Response Abnormal Pap N Date of Last Mammogram 12/20/2023 Date of LMP 07/19/1998 Sexually Active? Y STIs/STDs N Age of first menstrual cycle 8 HPV Vaccine N Date of Last Pap Smear 06/21/2023 Sexual Problems? Y Current Control Method Hysterectom y LMP Approximate 03/19/2020 Obstetrics History GPAL:G 0 P 0 0 0 0 Past Encounters Encounter ID Performer Location Encounter Start Date Encounter Closed Date Diagnosis/Indication Diagnosis SNOMED-CT Code Diagnosis ICD10 Code Diagnosis IMO Codes Diagnosis Note [id number] Mayela Martínez MD [place] [address],[facility] [place] [address] 06/03/2020 14:17:22 06/04/2020 12:34:38 Gynecologic examination 17418415 Z01.419 History of hysterectomy 726940649 Z90.711 [id number] Mayela Martínez MD [place] [address] [address] 09/18/2020 11:50:23 09/22/2020 22:52:40 Increased frequency of urination 874716284 R35.0 [id number] SHANIA Howard [place] [address],[facility] [place] [address] 06/08/2022 10:55:15 06/08/2022 11:57:48 Screening for malignant neoplasm of breast 726319182 Z12.39 Screening for osteoporosis 366682546 Z13.820 Gynecologi c examination 92025921 Z01.419 Take Calcium with Vitamin D 12-1500mg daily. Do monthly self breast exams. It is advised to get annual flu shot in the fall and she could obtain at [facility] or [facility] take care clinic. If you haven't received the Tdap vaccine in the last 10 years you should obtain one as well. Have mammogram yearly, bone density every 2-3 years and colonoscop y every 5-10 years depending on findings and history. Engage in daily exercise of low impact aerobic exercise 45-60 minutes 4-5 times weekly. Avoid tobacco and illicit drugs as well as using moderation with alcohol intake less than 1-2 8 oz beverages daily. This lifestyle behavior pattern will lead to less health conditions and longer life span. If BMI greater than 25 weight watchers or dietary consult advised. Questions have been answered. Patient appears to understand instructio ns, but if you have any further questions call or respond to this email WWEhx of hyst for non-cancer ous indication s per patient. Normal pap hxPaps d/c'd unless otherwise indicatedS ome vulvar itching on and off from time to time. She uses vaginal wipes and vagisil to cleanse the vulva. Itching comes and goes.Vulva r care guidelines discussed in-depth-D o not use vaginal wipes/vagi elizabeth-Crisco to vulva twice a day, use crisco as lubricatio n with IC-Cotton underwear only, sleep with no underwear- Free and clear laundry products, no fabric softener's RTC if symptoms persist after making changes, vulvar exam WNL todayColon oscopy UTD due next 03/2025Mam mogram due 09/2021 - order givenDexa due 08/2022 - order givenUTD with PCP [id number] SHANIA Howard [place] [address] [address] 03/03/2023 11:34:38 03/03/2023 12:19:37 Insomnia 933883738 G47.00 Detailed hx obtained, discussed her current symptoms in-depthwe agreed to update labs for further evaluation recommend PCP f/u and evaluation /managemen t of these symptomsRe commended limiting caffeine, avoid screen time prior to bedtime, daily walks/move ment, healthy eating Time spent in visit is a total of 25 mins with at least 50% of visit consisting of counseling and review of plan of care. Non-menopa usal hot flash 6009078569 97306 R23.2 Weight increased 6329238 00 R63.5 [id number] SHANIA Howard [place] [address] [address] 06/21/2023 12:16:03 06/21/2023 14:08:44 Gynecologic examination 16514670 Z01.419 WWEno further paps neededSTI testing declinedma mmogram order givendexa due next olono scopy UTDUTD with PCP, BP precaution s discussed Take Calcium with Vitamin D daily. Do monthly self breast exams. It is advised to get annual flu shot in the fall and she could obtain at [facility] or [facility]. If you haven't received the Tdap vaccine in the last 10 years you should obtain one as well. Have mammogram yearly, bone density every 2-3 years and colonoscop y every 5-10 years depending on findings and history. Engage in daily exercise of low impact aerobic exercise 45-60 minutes 4-5 times weekly. Avoid tobacco and illicit drugs as well as using moderation with alcohol intake less than 1-2 8 oz beverages daily. This lifestyle behavior pattern will lead to less health conditions and longer life span. If BMI greater than 25 dietary consult advised. Questions have been answered. Patient appears to understand instructio ns, but if you have any further questions call or respond to this email Screening for malignant neoplasm of breast 572790845 Z12.39 Vaginal dryness 52263809 N89.8 veg based moisturize r routine discussedo pts to trial vaginal estrogen 2-3 times per week - r/b/a reviewedde nies any contraindi cationsmed check in 6 weeks Time spent in visit is a total of 30 mins with at least 50% of visit consisting of counseling and review of plan of care. [id number] SHANIA Howard [place] [address] [address] 06/23/2024 12:28:46 06/26/2024 16:18:28 Gynecologic examination 84046905 Z01.419 WWEno further paps neededSTI testing declinedma mmogram UTDdexa UTDcolonos copy UTDUTD with PCP, BP precaution s discussed Take Calcium with Vitamin D daily.Do monthly self breast exams.It is advised to get annual flu shot in the fall and she could obtain at [facility] or [facility] care clinic. If you haven't received the Tdap vaccine in the last 10 years you should obtain one as well.Have mammogram yearly, bone density every 2-3 years and colonoscop y every 5-10 years depending on findings and history.En nestor in daily exercise of low impact aerobic exercise 45-60 minutes 4-5 times weekly. Avoid tobacco and illicit drugs as well as using moderation with alcohol intake less than 1-2 8 oz beverages daily. This lifestyle behavior pattern will lead to less health conditions and longer life span. If BMI greater than 25 dietary consult advised.Qu estions have been answered. Patient appears to understand instructio ns, but if you have any further questions call or respond to this email Candidiasis of skin 4941 6998 B37.2 rx sent, if symptoms continue rec derm consult Vaginal dryness 06705894 N89.8 Doing very well with estradiol creamsigni ficant decrease in symptomsre fills sent, r/b/a reviewedRT C for WWE in 1 yr or sooner if needed Time spent in visit is a total of 18mins with at least 50% of visit consisting of counseling and review of plan of care. [id number] SHANIA Howard [place] [address] [address] 08/10/2023 13:46:27 08/10/2023 14:27:54 Vaginal dryness 28538235 N89.8 Doing very well with estradiol creamsigni ficant decrease in symptomsre fills sent, r/b/a reviewedRT C for WWE in 1 yr or sooner if needed Time spent in visit is a total of 18mins with at least 50% of visit consisting of counseling and review of plan of care. Health Concerns Section Related Observation LastModified by Organization Detai ls LastModified Time None Recorded Concern Status LastModified by Organization Details LastModified Time None Recorded Advance Directives Directive None Recorded Payers Insurance Date Sequence Insurance Name Policy Number Policy Granger Covered Member ID Granger Member ID Guarantor Name 06/27/2024 1 [facility] (MEDICARE REPLACEMENT HMO) [id number] Annie Yusuf [id number] Annie Yusuf Notes Date Note Type Note Provider Name and Address Organization Details Recorded Time 2 text/html Annual Third Officer Post-MenopausalReported by PatientGenitourinary symptomsFor menopausal symptoms, patient reportsno menopausal symptomsandnormal vaginal lubrication. For vaginal bleeding, patient reportshistory of menopause having occurredandno history of post menopausal bleeding. For urinary symptoms, patient reportsno hematuria,no incontinence,no nocturia, andno urinary frequency. For vulva, patient reportsno genital lesionandno vulvar atrophy. For vagina, patient reportsnormal vaginal dischargeandno vaginal atrophy.Breast symptomsFor breast, patient reportsno breast lump,no nipple discharge, andno breast pain.Psychological symptomsFor sexual complaints, patient reportsno sexual complaints. For psychological symptoms, patient reportsno depressionandno anxiety.Preventative measuresFor preventive measures, patient reportsencourage regular mammograms starting age 40,encourage self breast examination,encourage regular exercise,encourage no tobacco use,mammogram performed within the past year, andhistory of recent colonoscopy. SHANIA Howard [address], [place], [address], [facility] 06/08/2022 11:56:22 3 text/html 67yopresents for evaluation of multiple symptomshot and cold flashes, insomnia, and fatigue over the last 1-2 years.forgetfulnesshyst, BSO in the 90'smedical hx : HTN, type 2 diabeteswatches TV in bed, drinks no caffiene SHANIA Howard [address], [place], [address], [facility] 03/03/2023 12:16:09 3 text/html Annual Third Officer Post-MenopausalReported by PatientGenitourinary symptomsFor menopausal symptoms, patient reportsinadequacy of lubrication of vaginal mucosabut reportsno menopausal symptoms. For vaginal bleeding, patient reportshistory of menopause having occurredandno history of post menopausal bleeding. For urinary symptoms, patient reportsno hematuria,no incontinence,no nocturia, andno urinary frequency. For vulva, patient reportsno genital lesionandno vulvar atrophy. For vagina, patient reportsnormal vaginal dischargeandno vaginal atrophy.Breast symptomsFor breast, patient reportsno breast lump,no nipple discharge, andno breast pain.Psychological symptomsFor sexual complaints, patient reportsno sexual complaints. For psychological symptoms, patient reportsno depressionandno anxiety.Preventative measuresFor preventive measures, patient reportsencourage regular mammograms starting age 40,encourage self breast examination,encourage regular exercise, andencourage no tobacco use.hx of TLH, BSO for fibroids/AUBvaginal dryness/irritation/itchin g/rawness - has tried OTC vaginal moisturizer products with no relief. Sometimes itching so much will cause bleeding dexa 10/2022 - normalmammogram olonoscopy UTD SHANIA Howard [address], [place], [address], [facility] 06/21/2023 14:06:37 4 text/html 68yoh/o hx of TLH, BSO for fibroids/AUBpresents for med checkstarted [facility] noticed a huge improvementno longer having any itching/irritation/burnin gvery happy with symptoms relief SHANIA Howard [address], [place], [address], [facility] 08/10/2023 14:26:51 4 text/html Annual Third Officer Post-MenopausalReported by PatientGenitourinary symptomsFor menopausal symptoms, patient reportsno menopausal symptomsandnormal vaginal lubrication. For vaginal bleeding, patient reportshistory of menopause having occurredandno history of post menopausal bleeding. For urinary symptoms, patient reportsno hematuria,no incontinence,no nocturia, andno urinary frequency. For vulva, patient reportsno genital lesionandno vulvar atrophy. For vagina, patient reportsnormal vaginal dischargeandno vaginal atrophy.Breast symptomsFor breast, patient reportsno breast lump,no nipple discharge, andno breast pain.Psychological symptomsFor sexual complaints, patient reportsno sexual complaints. For psychological symptoms, patient reportsno depressionandno anxiety.Preventative measuresFor preventive measures, patient reportsencourage regular mammograms starting age 40,encourage self breast examination,encourage regular exercise, andencourage no tobacco use.69yo wweh/o TLH, BSO for fibroids/AUBusing vaginal estradiol which has helped with dryness/irritation often gets a yeast rash under breast and around hips SHANIA Howard [address], [place], [address], [facility] 06/26/2024 14:19:15 OBGyn Episode No OBEpisode recorded.
--- OUTSIDE RECORDS SUMMARY | 2025-06-08 12:44 | XMS_ITS | Encounter Summary ---
Author Organization [facility] Address [address] [place] [address] Care Team Providers Care Spreading Machine Operator Name Role Phone Unavailable Primary Care Provider Unavailabl e Encounter Details Date Type Department Care Team (Late st Contact Info) Description 04/30/2025 Lab Requisition [facility] - DermPath Lab [address] [place] [id number] Ronal Lee MD [address] [place] [address] Basal cell carcinoma of skin of other part of trunk Social History Tobacco Use Types Packs/Day Years [...] of skin of other part of trunk documented in this encounter Results * DERMATOPATHOLOGY (04/30/2025 8:00 AM CDT) Case Report Dermatopathology Report Case: [id number] Authorizing Provider: Ronal Lee MD Collected: 04/30/2025 08:00 AM Ordering Location: [facility] - Received: 05/02/2025 12:37 PM DermPath Lab [...] of a non-oriented ellipse of skin measuring 43k87i0 mm. The epidermal surface is unremarkable. The [...] characteristic determined by the Dermatopathology Laboratory at [facility], directed by Dr. Lobo Carranza. These tests need not be, and therefore are not, approved by the [place] Food and Drug Administration. The tests are used for clinical purposes. Billing Codes Specimen Charges Stain Charges 42291 1 8:29 AM CDT DERMATOPATHOLOGY LABORATORY Embedded Images 8:29 AM CDT DERMATOPATHOLOGY LABORATORY Pathology/Cytolo gy TISSUE SPECIMEN FROM SKIN / Unknown 04/30/2025 8:00 AM CDT 05/02/2025 12:37 PM CDT Ronal Lee MD LAB - PATHOLOGY/CYTOLOGY ORDERAB LES Final Result DERMATOPATHOLOGY LABORATORY [facility] - Department of Dermatology [address], [address] [phone] documented in this encounter Visit Diagnoses Diagnosis Basal cell carcinoma of skin of other part of trunk documented in this encounter
== END 2025-06-08 12:41 | disposition home or self-care (01) ==
PROVIDERS: PCP Nurse Practitioner; Visit Provider Orthopaedic Surgery
DX: I10 Essential (primary) hypertension (principal); I45.10 Unspecified right bundle-branch block
CPT/HCPCS: 93005

== ENCOUNTER 2025-06-29 08:32 | Outpatient (CLI) | payer OTHER, SELFPAY ==
--- NOTE | ~2025-06-29 | NM_ITS ---
EXAMINATION: NM tonny stress w perfusion DATE: 06/29/2025 10:27 INDICATION: Abnormal ECG TECHNIQUE: Rest images were obtained following intravenous administration of 9.5 mCi Tc99m tetrofosmin (Myoview). The patient was infused intravenously with Lexiscan (regadenoson). Then, 30.3 mCi Tc99m tetrofosmin (Myoview) was administered intravenously, and stress images were obtained. Data was recon structed into short axis and horizontal and vertical long axis SPECT images. Gated SPECT images were also obtained. COMPARISON: None. FINDINGS: There is no definite reversible or fixed perfusion abnormality to suggest ischemia or infarction. There is no segmental wall motion abnormality. Left ventricular ejection fraction measures 75%. IMPRESSION: 1. No definite ischemia or infarct. 2. Normal left ventricular ejection fraction measuring 75%. Reviewed, dictated and finalized at location A. IO OPERATOR
--- NOTE | 2025-06-29 08:49 | EST_ITS ---
Patient Info Name: Annie Yusuf Age: 70 years : 1955 Gender: Female Ht: 66 in Wt: 200 lbs BSA: 2.09 m2 HR: 77 bpm BP: 130 / 82 mmHg Exam Date: 06/29/2025 8:49 AM Patient Status: O Admit Date: 06/29/2025 Exam Type: CA stress tonny w NM A regadenoson stress test was performed. Staff Referring Physician: Jorge Luis Muhammad Attending Provider: Jorge Luis Muhammad Exercise Technologist: Marielena Muhammad Exercise Physician: Lucho Browne DO Summary 1. 1. Negative lexiscan stress test for ischemic ST changes by ECG criteria. 2. 2. Stable hemodynamics throughout the test. 3. 3. Nuclear scan to follow and will be reported separately. Please correlate with it. 4. 4. Patient informed of the above results. Protocol: Lexiscan Stress ECG Details Stage: REST Duration (min): 0 min : 56 sec HR (bpm): 77 SBP (mmHg): 130 DBP (mmHg): 82 Stage: REST Duration (min): 1 min : 27 sec HR (bpm): 76 SBP (mmHg): 130 DBP (mmHg): 82 Stage: REST Duration (min): 13 min : 21 sec HR (bpm): 78 SBP (mmHg): 130 DBP (mmHg): 82 Stage: STAGE 1 Duration (min): 0 min : 59 sec HR (bpm): 109 SBP (mmHg): 130 DBP (mmHg): 95 Stage: RECOVERY Duration (min): 1 min : 0 sec HR (bpm): 99 SBP (mmHg): 130 DBP (mmHg): 95 Stage: RECOVERY Duration (min): 2 min : 0 sec HR (bpm): 92 SBP (mmHg): 130 DBP (mmHg): 95 Stage: RECOVERY Duration (min): 3 min : 0 sec HR (bpm): 88 SBP (mmHg): 132 DBP (mmHg): 84 Stage: RECOVERY Duration (min): 3 min : 40 sec HR (bpm): 91 SBP (mmHg): 132 DBP (mmHg): 84 Rest HR: 78 bpm Peak HR: 109 bpm Rest Sys BP: 130 mmHg Peak Sys BP: 132 mmHg Max Pred HR: 148 bpm % Max Pred HR: 74 % Target HR: 126 bpm Max RPP: 14,388 bpm*mmHg Termination Reason: Completed protocol Cardiac Symptoms: Shortness of breath Total Time: 1 min : 0 sec Rest Bobby BP: 82 mmHg Peak Bobby BP: 84 mmHg Total Dose: 0.4 mg Resting ECG Sinus rhythm, IRBBB. Stress ECG No ST changes. Arrhythmias None. Report Signatures
== END 2025-06-29 08:33 | disposition home or self-care (01) ==
PROVIDERS: PCP Nurse Practitioner; Visit Provider Nurse Practitioner
DX: R94.31 Abnormal electrocardiogram [ECG] [EKG] (principal)
CPT/HCPCS: 78452; 93017; A9502; J2785